=== PATIENT | male | born 1970 | race Caucasian/White ===

== ENCOUNTER 2019-02-27 08:19 | Emergency (ER) | payer OTHER ==
[~2019-02-27] VITALS: Ht 167.6 cm; Wt 76.7 kg
[2019-02-27 08:23] VITALS: Ht 167.6 cm; Wt 76.7 kg
[2019-02-27] MEDS ORDERED: KETOROLAC 60 MG INJ IM STA (10:06)
[2019-02-27] MEDS ORDERED: NAPR-985 PO (11:43)
[2019-02-27 11:52] VITALS: BP 121/78; PULSE 79; RESP 20
--- NOTE | 2019-02-27 11:54 | ERD ---
ER Documentation Chief Complaint Chief Complaint Comnplains of severe back pain x 3 days HPI 48-year-old male presents to the ED complaining of lower back pain bilaterally. Patient states that on Sunday he lifted a "300 pound" seen by himself. He states that he began to have bilateral lower back pain 3 days ago. He states that today the pain is improving, however, he is continued to have sided lower back pain which radiates down into his buttocks and posterior leg. She states that approximately 5 years ago, then 3 years ago, and 2 weeks ago he sustained falls at work to which he did not seek medical attention. He states that he fell on machinery at work and sustained bruising to the bilateral buttocks and legs. He denies any saddle anesthesia and/or loss of bowel and bladder control. He denies any fevers, chills, nausea, vomiting, head trauma, loss of ambulation, dysuria or hematuria. Denies any pertinent past medical history other than prediabetes. Patient does not take any medications. Patient denies any allergies to medication. Denies tobacco, alcohol and drugs ROS All systems reviewed and are negative except as per history of present illness. Medications Home Meds Active Scripts Naproxen* (Naprosyn*) 500 Mg Tablet, 500 MG PO BID PRN for PAIN AND/OR IN FLAMMATION, #30 TAB Prov:JEANNE ROLDAN PA-C 02/27/19 Allergies Allergies: Coded Allergies: No Known Allergy (Unverified , 02/27/19) PMhx/Soc Medical and Surgical Hx: pt denies Medical Hx, pt denies Surgical Hx Hx Alcohol Use: No Hx Substance Use: No Hx Tobacco Use: No Smoking Status: Never smoker FmHx Family History: diabetes, other; No coronary disease Physical Exam Vitals Vital Signs Date Temp Pulse Resp B/P (MAP) Pulse Ox O2 O2 Flow FiO2 Time Delivery Rate 02/27/19 97.9 85 20 130/86 99 08:23 (101) Physical Exam Const: No acute distress Head: Atraumatic Eyes: Normal Conjunctiva ENT: Normal External Ears, Nose and Mouth. Neck: Full range of motion. No meningismus. Resp: Clear to auscultation bilaterally Cardio: Regular rate and rhythm, no murmurs Abd: Soft, non tender, non distended. Normal bowel sounds Skin: No petechiae or rashes Back: No midline or CVA tenderness bilaterally, negative straight leg test bilaterally, was able to perform flexion and lateral rotation, however, limited due to pain. Ext: No cyanosis, or edema Neur: Awake and alert Psych: Normal Mood and Affect Results 24 hrs Current Medications Medications Dose Sig/Aram Start Time Status Last (Trade) Ordered Route PRN Stop Time Admin Dose Reason Admin Ketorolac 60 mg ONCE STAT 02/27/19 DC 02/27/19 Tromethamine IM 10:06 10:16 (Toradol) 02/27/19 10:07 Procedures/MDM This is an otherwise healthy 48-year-old male who presents to the ED complaining of left-sided lower back pain. Due to the patient's history of numerous falls x-rays were obtained of the lumbar spine and coccyx. The patient was given IM Toradol and was observed for approximately 1 hour. After further questioning, the patient stated that his pain was markedly improved. IMPRESSION: Mild vertebral enthesopathy. IMPRESSION: Unremarkable x-ray examination of the sacrum and coccyx. Patient will be discharged with a prescription for naproxen and told to follow- up with primary care doctor to receive physical therapy. I have a low suspicion for epidural abscess, herniated or bulging discs, acute fractures, sciatica, malignancy, cauda equina, or other emergent conditions. Diagnosis: Back Pain Discharge medications: Naproxen Follow up with primary care physician in 1-2 days. Instructed patient to return to the ED sooner for any worsening symptoms. Patient's questions were answered. Patient is hemodynamically stable. Patient understood and agreed with discharge plan. Patient discharged stable. Disclaimer: Inadvertent spelling and grammatical errors are likely due to EHR/dictation software use and do not reflect on the overall quality of patient care. Also, please note that the electronic time recorded on this note does not necessarily reflect the actual time of the patient encounter. Departure Diagnosis: Primary Impression: Back pain Back pain location: back pain in unspecified location Chronicity: unspecified Back pain laterality: unspecified Qualified Codes: M54.9 - Dorsalgia, unspecified Additional Impression: Buttock pain Condition: Stable Patient Instructions: Back Safety: Lifting, Back Basics: A Healthy Spine, Back Care Tips, Back Pain (Acute Or Chronic), Back Pain W/ Sciatica Referrals: [facility] YOU HAVE RECEIVED A MEDICAL SCREENING EXAM AND THE RESULTS INDICATE THAT YOU DO NOT HAVE A CONDITION THAT REQUIRES URGENT TREATMENT IN THE EMERGENCY DEPARTMENT. FURTHER EVALUATION AND TREATMENT OF YOUR CONDITION CAN WAIT UNTIL YOU ARE SEEN IN YOUR DOCTORS OFFICE WITHIN THE NEXT 1-2 DAYS. IT IS YOUR RESPONSIBILITY TO MAKE AN APPOINTMENT FOR FOLOW-UP CARE. IF YOU HAVE A PRIMARY DOCTOR --you should call your primary doctor and schedule an appointment IF YOU DO NOT HAVE A PRIMARY DOCTOR YOU CAN CALL OUR PHYSICIAN REFERRAL HOTLINE AT IF YOU CAN NOT AFFORD TO SEE A PHYSICIAN YOU CAN CHOSE FROM THE FOLLOWING [facility] [address] [facility]. [facility] [address] [facility]. [facility] [address] [facility] [facility] [address] [facility]. [facility] [address] [facility]. [facility] [address] [facility]. [facility] YOU HAVE RECEIVED A MEDICAL SCREENING EXAM AND THE RESULTS INDICATE THAT YOU DO NOT HAVE A CONDITION THAT REQUIRES URGENT TREATMENT IN THE EMERGENCY DEPARTMENT. FURTHER EVALUATION AND TREATMENT OF YOUR CONDITION CAN WAIT UNTIL YOU ARE SEEN IN YOUR DOCTORS OFFICE WITHIN THE NEXT 1-2 DAYS. IT IS YOUR RESPONSIBILITY TO MAKE AN APPOINTMENT FOR FOLOW-UP CARE. IF YOU HAVE A PRIMARY DOCTOR --you should call your primary doctor and schedule and appointment IF YOU DO NOT HAVE A PRIMARY DOCTOR YOU CAN CALL OUR PHYSICIAN REFERRAL HOTLINE AT . IF YOU CAN NOT AFFORD TO SEE A PHYSICIAN YOU CAN CHOSE FROM THE FOLLOWING [facility] INSTITUTIONS: [facility] [address] [place] [address] [facility] [address] [place] [address] [facility] + [facility] [address] [place] [address] [facility] URGENT CARE/SPECIALTIES Additional Instructions: Call your primary care doctor TOMORROW for an appointment during the next 2-3 days.See the doctor sooner or return here if your condition worsens before your appointment time. JEANNE ROLDAN PA-C Feb 27, 2019 11:54
== END 2019-02-27 11:54 | disposition home or self-care (01) ==
LOC: FTE 08:19
DX: M54.5 Low back pain (principal); M79.659 Pain in unspecified thigh
CPT/HCPCS: 72100; 72220; 96372; J1885; Z7502